=== PATIENT | female | born 1990 | race Caucasian/White ===

== ENCOUNTER 2019-02-20 16:43 | Emergency (ER) | payer MEDICAID ==
[~2019-02-20] VITALS: Ht 162.6 cm; Wt 63.6 kg
[~2019-02-20 16:43] MED LIST: BUDE10.2 INH; GABA600T13 PO; MIDAZOLAM; OMEP20TA5 PO; OXCA150T5 PO; OXCA300T4 PO; POLY17PO36 PO; VALA10002 PO; ZONI100C6 PO
[2019-02-20 16:47] VITALS: BP 118/75
[2019-02-20] MEDS ORDERED: ondansetron/PF 4mg/2ml inj IV ONE (17:25)
[2019-02-20] MEDS ORDERED: normal saline 1000ML IV soln IVB ONE (17:25)
[2019-02-20 17:55] LABS: BASOPHILS % (AUTO) 0.4 % (0-1); EOSINOPHILS # (AUTO) 0.2 X10'3 (0-0.9); EOSINOPHILS % (AUTO) 2.9 % (0-6); HEMOGLOBIN 13.3 g/dl (12.0-16.0); LYMPHOCYTES # (AUTO) 1.2 X10'3 (1.1-4.8); LYMPHOCYTES % (AUTO) 15.1 % (21-51); MEAN CORPUSCULAR HEMOGLOBIN 37.1 PG (27.0-31.0); MEAN CORPUSCULAR HGB CONC 34.9 g/dL (33.0-36.5); MEAN CORPUSCULAR VOLUME 106.1 FL (78-98); MONOCYTES # (AUTO) 0.7 X10'3 (0-0.9); MONOCYTES % (AUTO) 8.6 % (2-12); NEUTROPHILS # (AUTO) 5.8 X10'3 (1.8-7.7); PLATELET COUNT 294 X10'3 (140-440); RED BLOOD COUNT 3.59 X10'6 (4.20-5.60); RED CELL DISTRIBUTION WIDTH 12.6 % (11.5-14.5)
[2019-02-20] MEDS ORDERED: CefTRIAXone 2gm/D5W 50ml 50 ML IV ONE (18:05)
[2019-02-20 18:06] LABS: ALANINE AMINOTRANSFERASE 18 U/L (12-78); ALBUMIN 3.6 G/DL (3.4-5.0); ALBUMIN/GLOBULIN RATIO 1.1 (1.1-1.5); ALKALINE PHOSPHATASE 68 IU/L (46-116); ANION GAP 7 (8-16); ASPARTATE AMINO TRANSFERASE 11 U/L (10-37); BILIRUBIN,TOTAL 0.2 MG/DL (0.1-1.0); BLOOD UREA NITROGEN 11 MG/DL (7-18); BUN/CREATININE RATIO 14.9 (6.6-38.0); CALCIUM 8.5 MG/DL (8.5-10.1); CHLORIDE 100 MMOL/L (99-107); CREATININE 0.74 MG/DL (0.40-0.90); GLUCOSE 90 MG/DL (70-104); POTASSIUM 3.8 MMOL/L (3.5-5.1); SODIUM 132 MMOL/L (135-145); TOTAL PROTEIN 6.9 G/DL (6.4-8.2); eGFR > 90 ML/MIN
[2019-02-20] MEDS ORDERED: TRAM50TA2 PO (18:13)
[2019-02-20] MEDS ORDERED: ONDA4TAB6 PO (18:13)
[2019-02-20] MEDS ORDERED: CEPH-571 PO (18:13)
[2019-02-20] MEDS: morphine 4 MG/ML inj SYRINge IV PRN ×2 (18:39→19:12)
[2019-02-20] MEDS ORDERED: gabapentin 300mg capsule PO SCH (18:45)
[2019-02-20] MEDS ORDERED: oxcarbazepine 150mg tablet PO SCH ×2 (18:45→21:00)
--- NOTE | 2019-02-20 18:48 | NUR ---
PATIENT TOOK MEDS FROM HOME-GABAPENTIN 600 MG AND TRILEPTAL [address] SERRANO APPROVAL.
[2019-02-20] MEDS ORDERED: proCHLORperazine 10 MG/2 ml inj IV ONE (19:10)
[2019-02-20] MEDS ORDERED: ketorolac trometh. 30mg/ml inj. IV ONE (19:10)
== END 2019-02-20 19:56 | disposition home or self-care (01) ==
LOC: ER 16:44
DX: G89.18 Other acute postprocedural pain (principal); L53.8 Other specified erythematous conditions; Z88.5 Allergy status to narcotic agent; Z88.1 Allergy status to other antibiotic agents; Z91.030 Bee allergy status; Z91.013 Allergy to seafood; Z79.899 Other long term (current) drug therapy
CPT/HCPCS: 36415; 80053; 85025; 96365; 96375; 96376; 99284; J0696; J0780; J1885; J2270; J2405; J7030

== ENCOUNTER 2024-02-12 15:24 | Emergency (ER) | payer MEDICARE, MEDICAID ==
[~2024-02-12] VITALS: Ht 162.6 cm; Wt 76.3 kg
[~2024-02-12 15:24] MED LIST changes: +CEPH-571 PO; +OMEP20TA43 PO; -OMEP20TA5 PO; +ONDA4TAB6 PO; -POLY17PO36 PO; +POLY17PO59 PO; -ZONI100C6 PO; +ZONI100C87 PO
[2024-02-12 17:21] VITALS: BP 108/69; PULSE 82; RESP 17; TEMP 97.7; O2SAT 99
== END 2024-02-12 17:23 | disposition home or self-care (01) ==
LOC: ER 15:24
DX: S13.4XXA Sprain of ligaments of cervical spine, initial encounter (principal); S09.90XA Unspecified injury of head, initial encounter; Z88.5 Allergy status to narcotic agent; Z91.040 Latex allergy status; Z91.013 Allergy to seafood; Z88.1 Allergy status to other antibiotic agents; Z79.899 Other long term (current) drug therapy; Z79.2 Long term (current) use of antibiotics; W19.XXXA Unspecified fall, initial encounter; Y93.89 Activity, other specified; Y92.89 Other specified places as the place of occurrence of the external cause; Y99.8 Other external cause status
CPT/HCPCS: 70450; 72125; 99284